=== PATIENT | male | born 1950 | race Caucasian/White ===

== ENCOUNTER 2017-02-16 20:57 | Emergency (ER) | payer BC, OTHER, SELFPAY | END 2017-02-16 21:34 | disposition home or self-care (01) | LOC: BURERS 20:57 | DX: R05 Cough (principal); I10 Essential (primary) hypertension; Z85.46 Personal history of malignant neoplasm of prostate; Z79.899 Other long term (current) drug therapy | CPT/HCPCS: 99283 ==

== ENCOUNTER 2017-02-23 09:25 | Emergency (ER) | payer OTHER ==
--- NOTE | 2017-02-23 13:26 | RAD ---
THORACIC SPINE 3 VIEWS: Date: 02/23/17 No fracture, dislocation, or disc space narrowing seen. Mild curvature of the spine convex left was n oted. Some mild to moderate degenerative changes are present, mainly in the mid to lower thoracic reg ion. IMPRESSION: Mild degenerative change. POS: HOME
== END 2017-02-23 10:24 | disposition home or self-care (01) ==
LOC: BURERS 09:25
DX: M54.6 Pain in thoracic spine (principal); I10 Essential (primary) hypertension; Z79.899 Other long term (current) drug therapy
CPT/HCPCS: 72072